=== PATIENT | female | born 1975 | race Caucasian/White ===

== ENCOUNTER 2022-05-28 09:15 | Outpatient (CLI) | payer OTHER, SELFPAY ==
[2022-05-28 09:45] LABS: Hematocrit 41.1 % (37.0-47.0); Hemoglobin 13.4 g/dL (12.0-15.0); Mean Corpuscular HGB Conc 32.6 g/dl (32-36); Mean Corpuscular Hemoglobin 28.5 pg (26-34); Mean Corpuscular Volume 87.3 fl (80-100); Mean Platelet Volume 8.8 fl (7.4-10.4); Platelet Count Result 308 k/mm3 (150-375); Red Blood Count 4.71 M/mm3 (4.2-5.4); Red Cell Distribution Width 13.7 % (11.5-14.5); White Blood Count 6.7 K/mm3 (4.5-10.0)
[2022-05-28 09:54] LABS: Alanine Aminotransferase 21 U/L (6-35); Albumin Level 4.6 g/dL (3.5-5.1); Alkaline Phosphatase 71 U/L (38-126); Anion Gap 6 mmol/L (8-16); Aspartate Amino Transferase 26 U/L (14-36); Bilirubin,Total 0.4 mg/dL (0.2-1.3); Blood Urea Nitrogen 15 mg/dL (7-17); CRP < 0.5 mg/dL (<1.0); Carbon Dioxide 27 mmol/L (22-30); Chloride 100 mmol/L (98-107); Estimated Glomerular Filt Rate > 60; Glucose 93 mg/dL (65-110); Sodium 133 mmol/L (137-145)
[2022-05-28 10:10] LABS: Erythrocyte Sedimentation Rate 13 mm/hr (0-20)
== END 2022-05-28 09:16 | disposition home or self-care (01) ==
PROVIDERS: PCP Emergency Medicine; Visit Provider Nurse Practitioner Family
DX: K51.90 Ulcerative colitis, unspecified, without complications (principal)
CPT/HCPCS: 36415; 80053; 85027; 85652; 86140

== ENCOUNTER 2022-07-13 01:17 | Day surgery (SDC) | payer OTHER, SELFPAY ==
[2022-07-05 12:26] VITALS: BMI 25.4
[2022-07-13 06:53] VITALS: BP 101/84; PULSE 94; RESP 16; TEMP 36.2; O2SAT 100
[2022-07-13] MEDS: LACTATED RINGERS 1,000 ML 150 ML IV CONT (06:56)
--- NOTE | 2022-07-13 07:07 | P.PNAN_ITS ---
Anes - Initial Pre Proc Eval Procedure: Operation Date: 07/13/22 08:00 Proposed Procedures p Colonoscopy - Mike Ocampo MD Date/Time: 07/13/22 07:07 Surgeon: Mike Ocampo MD Pre Op Diagnosis: chronic ulcerative proctitis, Ulcerative colitis Patient Data Age: 46 Gender: F Height: 1.63 m Weight: 66.6 kg Last Vital Signs Temp 36.2 C L 07/13/22 06:53 Pulse 94 07/13/22 06:53 Resp 16 07/13/22 06:53 BP 101/84 07/13/22 06:53 Pulse Ox 100 07/13/22 06:53 O2 Del Method Room Air 07/13/22 06:53 Allergies Allergy/AdvReac Type Severity Reaction Status Date / Time No Known Allergies Allergy Verified 07/13/22 06:52 Home Medications Medication Instructions Recorded Confirmed Type No Home Medications 07/05/22 07/13/22 History Patient hx anesthesia problems: none Family hx anesthesia problems: none Results Review: All pre-operative results and documents have been reviewed as part of the pre- operative evaluation. [facility] Past Medical History Medical History Arthritis Colitis Wrist injury (~1995) Surgical History Surgical History History of cervical polypectomy (~2016) Hx of tonsillectomy (~1992) S/P hip replacement (~2021) Family History Family History Mother Asthma Cancer Sibling Asthma Father Hypertension Primary amyloidosis Grandparent Cancer Social History Social History Smoking packs per day: 1 Smoking cigarettes per day: 20.0 Years smoked: 10 Smoking pack-years: 10.00 Smoking status: Former smoker Tobacco type: cigarettes Alcohol intake: current Drinks per week: 2 Alcohol use details: DEMETRIO-GLASSES Substance use: never Substance use type: does not use Lack of Transportation: No Lack of Food: Never True Current Housing: I Have Housing Concerned About Future Housing: No Difficulty Paying Gas/Electric Bills: No Difficulty Paying for Meds: No Currently Unemployed: No Education: Master's Degree or Higher Difficulty w/ Childcare or Family Care: No Living arrangements: with family Spiritual care concerns: No Anes - Eval Final PreProcedure Day of Procedure 07/13/22 07:07 Patient weight: normal Heart: regular rate and rhythm Lungs: clear to auscultation Airway: Mallampati scale class II Neurological: alert and oriented Last oral intake: >/= 8 hours ASA classification: II Emergent: no Anesthetic plan: proceed Anesthesia type and monitoring: general GIVS and standard monitoring Results Review: All pre-operative results and documents have been reviewed as part of the pre- operative evaluation. Informed Consent: The patient's anesthetic plan and its attendant risks and benefits were discussed with the patient/family/POA. Questions were solicited and answers provided to the satisfaction of the patient/family/POA.
--- NOTE | 2022-07-13 08:00 | PM.HPGS ---
History of Present Illness History of Present Illness Consent: Risks, benefits, and alternatives have been discussed and questions answered. Patient agrees to proceed with procedure. Chief complaint: chronic ulcerative proctitis, Ulcerative colitis Narrative: Brenda Landeros is a 46 year old female here for screening colonoscopy, about 10 years ago had ulcerative proctitis but not longer using any medication, no blood in stool, occasionally loose stools Review of Systems Constitutional: Constitutional: Denies headache(s) and Denies weakness Eyes: Eyes: Denies blurry vision ENT: Reports Normal hearing present, Denies headache(s) and Denies neck pain Cardiovascular: Cardiovascular: Denies chest pain and Denies dyspnea Respiratory: Respiratory: Denies dyspnea Gastrointestinal: Gastrointestinal: Reports no additional gastrointestinal complaints Genitourinary: Genitourinary: Denies dysuria Musculoskeletal: Musculoskeletal: Denies neck pain Integumentary/Breasts: Skin/Breast: Denies dry skin Neurologic: Reports Normal hearing present, Denies headache(s) and Denies weakness Psychiatric: Psychiatric: Denies anxiety Endocrine: Endocrine: Denies change in body appearance Hematologic/Lymphatic: Hematologic/Lymphatic: Denies easy bleeding Allergic/Immunologic: Allergic/Immunologic: Denies urticaria PMF Past Medical History Medical History (Updated 07/13/22 @ 08:01 by Mike Ocampo MD) Arthritis Colitis Colon cancer screening Wrist injury (~1995) Surgical History Surgical History History of cervical polypectomy (~2016) Hx of tonsillectomy (~1992) S/P hip replacement (~2021) Family History Family History Mother Asthma Cancer Sibling Asthma Father Hypertension Primary amyloidosis Grandparent Cancer Social History Social History Smoking packs per day: 1 Smoking cigarettes per day: 20.0 Years smoked: 10 Smoking pack-years: 10.00 Smoking status: Former smoker Tobacco type: cigarettes Alcohol intake: current Drinks per week: 2 Alcohol use details: DEMETRIO-GLASSES Substance use: never Substance use type: does not use Lack of Transportation: No Lack of Food: Never True Current Housing: I Have Housing Concerned About Future Housing: No Difficulty Paying Gas/Electric Bills: No Difficulty Paying for Meds: No Currently Unemployed: No Education: Master's Degree or Higher Difficulty w/ Childcare or Family Care: No Living arrangements: with family Spiritual care concerns: No Meds Home Medications and Allergies Home Medications Medication Instructions Recorded Confirmed Type No Home Medications 07/05/22 07/13/22 History Allergies Allergy/AdvReac Type Severity Reaction Status Date / Time No Known Allergies Allergy Verified 07/13/22 06:52 Vital Signs Vital Signs - 24 hr 07/13/22 06:53 Temperature 97.2 F L Pulse Rate 94 Respiratory Rate 16 Blood Pressure 101/84 Pulse Oximetry 100 Oxygen Delivery Room Air Exam Const: General: comfortable and no acute distress HENMT: Face/Nose/Sinus: Normal nares present Eyes: General: appearance normal, both eyes and all related structures Neck: Neck: no JVD Resp: Auscultation: clear to auscultation bilaterally Cardio: Rate: regular rate Rhythm: regular rhythm GI: Inspection: non-distended GI Palp: Yes Soft to palpation Skin: General skin exam: normal color Neuro: General: gait normal Speech: normal speech Extrem: General: normal to inspection Psych: Mental Status: mental status grossly normal Assessment and Plan Assessment and plan (1) Colon cancer screening: Code(s): Z12.11 - Encounter for screening for malignant neoplasm of colon Status: Acute Assessment and Plan: colono
[2022-07-13 08:17] VITALS: BP 104/61; PULSE 88; RESP 18; O2SAT 99
[2022-07-13 08:27] VITALS: BP 102/74; PULSE 74; RESP 20; O2SAT 99
[2022-07-13 08:37] VITALS: BP 110/76; PULSE 78; RESP 21; O2SAT 99
== END 2022-07-13 08:48 | disposition home or self-care (01) ==
PROVIDERS: PCP Emergency Medicine; Visit Provider Internal Medicine Gastroenterology
PROC: 0DJD8ZZ Inspection of Lower Intestinal Tract, Via Natural or Artificial Opening Endoscopic (ICD-10-PCS; CPT 45378; principal; 2022-07-13 08:00)
DX: Z12.11 Encounter for screening for malignant neoplasm of colon (principal); K64.8 Other hemorrhoids; K64.4 Residual hemorrhoidal skin tags; Z87.891 Personal history of nicotine dependence; Z87.19 Personal history of other diseases of the digestive system
CPT/HCPCS: 45378; J2704; J7120

== ENCOUNTER → 2023-03-18 09:30 | Outpatient (CLI) | payer OTHER, SELFPAY ==
--- NOTE | ~2023-03-18 | XR_ITS ---
XR foot RT min 3V 03/18/2023 09:39 INDICATION: Right foot pain PROCEDURE: 4 views right foot COMPARISON: No prior studies for comparison. FINDINGS: Fracture, dislocation or subluxation is not identified. Lisfranc joint intact. Mild osteoar thritis of the first MTP joint. The soft tissues appear within normal limits. No foreign bodies are identified. IMPRESSION: 1: NO ACUTE BONE OR JOINT ABNORMALITY IDENTIFIED. Reviewed, dictated and finalized at location B. OGRAPH OPERATOR
--- NOTE | ~2023-03-18 | XR_ITS ---
XR foot LT min 3V 03/18/2023 09:39 Indication: Left foot pain Procedure: 4 views left foot Comparison: No prior studies for comparison. Findings: Mild osteoarthritis first MTP joint. Lisfranc joint intact. No significant soft tissue abno rmality. No foreign bodies. Impression: 1: Mild osteoarthritis of the first MTP joint. Reviewed, dictated and finalized at location B. PRODUCTS SALES REPRESENTATIVE Impression: 1: Mild osteoarthritis of the first MTP joint.
== END ==
PROVIDERS: PCP Emergency Medicine; Visit Provider Emergency Medicine
DX: M79.671 Pain in right foot (principal); M79.672 Pain in left foot
CPT/HCPCS: 73630

== ENCOUNTER 2023-11-01 08:09 | Outpatient (CLI) | payer OTHER, SELFPAY ==
[2023-11-01 18:43] LABS: Alanine Aminotransferase 12 U/L (6-35); Albumin Level 4.4 g/dL (3.5-5.1); Alkaline Phosphatase 49 U/L (38-126); Anion Gap 7 mmol/L (4-12); Aspartate Amino Transferase 39 U/L (14-36); Bilirubin,Total 0.7 mg/dL (0.2-1.3); Blood Urea Nitrogen 16 mg/dL (7-17); Calcium 9.2 mg/dL (8.4-10.2); Carbon Dioxide 25 mmol/L (22-30); Chloride 105 mmol/L (98-107); Cholesterol 227 mg/dL (0-200); Estimated Glomerular Filt Rate > 60; Glucose 78 mg/dL (65-110); HDL Direct 80 mg/dL; Potassium 3.8 mmol/L (3.4-5.0); Sodium 137 mmol/L (137-145); Triglycerides 52 mg/dL (<150)
[2023-11-01 18:54] LABS: LDL Cholesterol Direct 124 mg/dL
== END 2023-11-01 08:10 | disposition home or self-care (01) ==
LOC: ANHGOSHLAB 08:11
PROVIDERS: PCP Emergency Medicine; Visit Provider Emergency Medicine
DX: E78.00 Pure hypercholesterolemia, unspecified (principal)
CPT/HCPCS: 36415; 80053; 80061